=== PATIENT | female | born 1965 | race Caucasian/White ===

== ENCOUNTER 2021-09-08 14:02 | Emergency (ER) | payer OTHER ==
[~2021-09-08] VITALS: Ht 175.3 cm; Wt 85.3 kg
--- NOTE | 2021-09-08 14:12 | NUR ---
TO ER BED 9, C/O NOSE BLEED AND BLEEDING FROM L EYE S/P "BLOWING HER NOSE" AT 0945, CLAMPED NOSE UPON ARRIVAL, BREATHING EVEN AND NON LABORED, AWAITING MD PARKER
--- NOTE | 2021-09-08 14:33 | NUR ---
DR GOMEZ AT BEDSIDE FOR EVAL
[2021-09-08] MEDS ORDERED: OXYMETAZOLINE HCL NASAL SPRAY 30 ML BOTTLE NS ONE ×2 (14:40→15:00)
--- NOTE | 2021-09-08 15:10 | NUR ---
PROVIDED WET WASH CLOTH TO WIPE BLOOD OFF FACE, PATIENT REFUSED
--- NOTE | 2021-09-08 15:12 | NUR ---
CLAMP REMOVED, SHOWS NO BLEEDING AT THE MOMENT, AWARE
--- NOTE | 2021-09-08 15:41 | NUR ---
Patient discharged to home in stable condition. Written and verbal after care instructions given. Patient verbalizes understanding of instruction.
[2021-09-08 15:43] VITALS: BP 137/90
== END 2021-09-08 15:43 | disposition home or self-care (01) ==
LOC: ER 14:09
DX: R04.0 Epistaxis (principal); Z98.890 Other specified postprocedural states